=== PATIENT | male | born 1995 | race Caucasian/White ===

== ENCOUNTER 2022-12-17 12:33 | Emergency (ER) | payer OTHER, SELFPAY ==
[2022-12-17 12:37] VITALS: BP 136/88; PULSE 75; RESP 18; TEMP 36.6; O2SAT 97; BMI 28.7
--- NOTE | 2022-12-17 14:02 | ED.NURSE ---
automation and control engineer ortho paged.
--- NOTE | 2022-12-17 14:18 | ED.GENADULT ---
HPI - General Adult General Date Seen: 12/17/22 Chief complaint: Laceration/Wound Stated complaint: left hand laceration Time Seen by Provider: 12/17/22 12:34 Source: patient Mode of arrival: ambulatory Limitations: no limitations History of Present Illness HPI narrative: Patient is a 27-year-old male with no pertinent medical problems presented emergency department for a laceration to his left 2nd and 3rd fingers. Patient states he was moving some sheet metal and it slipped slicing his fingers. Denies any other injuries. Says tetanus shot was an 2008. No other concerns at this time. Related Data Previous Rx's Medication Instructions Recorded cephalexin 500 mg capsule 500 mg PO QID #20 caps 12/17/22 Allergies Allergy/AdvReac Type Severity Reaction Status Date / Time No Known Drug Allergies Allergy Verified 12/17/22 12:39 Review of Systems Narrative: Negative unless stated in HPI Exam Narrative: Exam Narrative: Const: Well-nourished, Well-developed, in mild distress Eyes: PERRL, no conjunctival injection, and symmetrical lids HENT: Atraumatic external nose and ears. Moist mucous membranes. MSK: 1 cm laceration noted to the left middle finger just distal to PIP. Full range of motion of left middle finger. Large laceration about 2 cm noted to left index finger starting just proximal to the PIP and going half or up the middle phalanx. He is unable to move the PIP but has full motion of the IP Skin: Warm, Dry. Neuro: Normal Muscle tone, No focal neurological deficits. Psych: Awake, Alert, & Oriented x3. Appropriate mood and affect. Const: Vital Signs, click to edit/add: Vital Signs - 24 hr 12/17/22 12:37 Temperature 97.8 F Pulse Rate [Right Pulse Oximeter] 75 Respiratory Rate 18 Blood Pressure [Ri ght Upper Arm] 136/88 Pulse Oximetry 97 Oxygen Delivery Me thod Room Air Course Vital Signs Vital signs: Initial Vital Signs Temperature 97.8 F 12/17/22 12:37 Temperature Source Temporal Artery Scan 12/17/22 12:37 Pulse Rate 75 12/17/22 12:37 Respiratory Rate 18 12/17/22 12:37 Blood Pressure 136/88 12/17/22 12:37 Blood Pressure Mean 104 12/17/22 12:37 Blood Pressure Position Sitting 12/17/22 12:37 Pulse Oximetry 97 12/17/22 12:37 Oxygen Delivery Method Room Air 12/17/22 12:37 Vital Signs Temperature 97.8 F 12/17/22 12:37 Pulse Rate 75 12/17/22 12:37 Respiratory Rate 18 12/17/22 12:37 Blood Pressure 136/88 12/17/22 12:37 Pulse Oximetry 97 12/17/22 12:37 Oxygen Delivery Method Room Air 12/17/22 12:37 Temperature 97.8 F 12/17/22 12:37 Pulse Rate 75 12/17/22 12:37 Respiratory Rate 18 12/17/22 12:37 Blood Pressure 136/88 12/17/22 12:37 Pulse Oximetry 97 12/17/22 12:37 Oxygen Delivery Method Room Air 12/17/22 12:37 Medical Decision Making MDM Narrative Medical decision making narrative: Patient is a 27-year-old male presenting for lacerations to his left 2nd 3rd fingers. Laceration repair was done see procedure note. Patient has full range of motion of his left middle finger but is unable to move the PIP of his right index finger I tried to extensively evaluate the finger but cannot clearly say if there is any involvement of the flexor tendon. I spoke to orthopedic surgery in a recommend hand specialist follow-up. I recommend surgery in 2 weeks if it is necessary but he can always be discharged home. Patient started on Keflex. He is agreeable to this plan. Discharge Plan Discharge Clinical Impression: Laceration of multiple sites of hand and fingers Qualifiers: Encounter type: initial encounter Laterality: left Qualified Code(s): S61.412A - Laceration without foreign body of left hand, initial encounter Patient Disposition: Home, Self-Care Condition: Stable Instructions: Finger Laceration (ED) Additional Instructions: Follow-up with your primary care provider in the next 7 days to have the 12 sutures in the index finger and the 7 in the middle finger removed. For next 6 months, once sutures are removed, whenever you goes outside put a tab of sunscreen over the laceration site to improve scar appearance. Topical antibiotics are not necessary at this time. Patient can shower but do not submerge the laceration until sutures are removed. I did give you oral antibiotics If you are unable to have full range of motion of the index finger by Monday please follow-up with a hand specialist. He can follow up with either [facility] or [facility] in that them know you need to see a hand specialist. Prescriptions: New cephalexin 500 mg capsule 500 mg PO QID Qty: 20 0RF Follow Up/Referrals: Provider,Not a Local [Primary Care Provider] - Stand Alone Forms: MyHealth Info Instructions Procedures Laceration Left middle finger: Name of person performing procedure: Luis Alberto Kenny Site: hand (Left middle finger) Side (If applicable): left Size (cm): 1 Description: linear and clean Depth: simple, single layer Local Anesthetic: lidocaine 1% (Digital block) Amount of anesthesia used (mL): 4 Pre-repair: wound explored, irrigated extensively, deep structures intact and extensive debridement Skin layer closed with: nylon Size (cm): 5-0 Number of sutures: 7 Technique: simple, interrupted Left index finger: Name of person performing procedure: Luis Alberto Kenny Site: hand (Left index finger) Side (If applicable): left Size (cm): 2 Description: linear and clean Depth: simple, single layer Local Anesthetic: lidocaine 1% Amount of anesthesia used (mL): 4 Skin layer closed with: nylon Size (cm): 5-0 Number of sutures: 12
== END 2022-12-17 15:25 | disposition home or self-care (01) ==
PROVIDERS: Emergency Provider Student in an Organized Health Care Education/Training Program
DX: S61.412A Laceration without foreign body of left hand, initial encounter (principal); W26.9XXA Contact with unspecified sharp object(s), initial encounter
CPT/HCPCS: 12001; 90471; 90714; 99283